=== PATIENT | male | born 1970 | race Caucasian/White ===

== ENCOUNTER 2016-04-30 00:52 | Inpatient (IN) | payer MEDICAID, MEDICARE, OTHER ==
[2016-04-30 01:23] LABS: Glucose,Whole Blood 190 mg/dL (75-99)
--- NOTE | 2016-04-30 02:13 | ED ---
Psych HPI - General Chief Complaint: Psychiatric Symptoms Stated Complaint: [facility] Time Seen by Provider: 04/30/16 01:09 Source: patient, RN notes reviewed Mode of arrival: ambulatory Limitations: no limitations - History of Present Illness Initial Comments: 45-year-old male presents emergency Department chief complaint depression suicidal thoughts. Patient states he has not taken his psychiatric medications in 6 months. Patient states that he does drink alcohol occasionally and uses marijuana. Patient states that he stopped taking his medications because he was gaining weight. Patient states that the apical was helping. Patient states she also has not been taking his diabetic medications are takes oral medications. Patient denies any physical complaints. Patient states that he has a plan to kill himself. Patient denies any homicidal thoughts. - Related Data Home Medications Medication Instructions Recorded Confirmed No Known Home Medications [No 04/30/16 04/30/16 Known Home Medications] Allergies Allergy/AdvReac Type Severity Reaction Status Date / Time No Known Allergies Allergy Verified 04/30/16 01:15 Review of Systems ROS Statement: Those systems with pertinent positive or pertinent negative responses have been documented in the HPI. ROS Other: All systems not noted in ROS Statement are negative. Past Medical History Past Medical History: Asthma, COPD, Diabetes Mellitus, Hypertension, Musculoskeletal Disorder Additional Past Medical History / Comment(s): vertigo, chronic back pain History of Any Multi-Drug Resistant Organisms: None Reported Past Surgical History: Hernia Repair, Orthopedic Surgery Additional Past Surgical History / Comment(s): left knee, left shoulder Past Anesthesia/Blood Transfusion Reactions: Previous Problems w/ Anesthesia Additional Past Anesthesia/Blood Transfusion Reaction / Comment(s): difficulty waking Past Psychological History: Anxiety, Bipolar, Depression Smoking Status: Current every day smoker Past Alcohol Use History: Daily, Heavy Past Drug Use History: Marijuana, Prescription Drug Abuse Additional Drug Use History / Comment(s): occasional for pain - Past Family History Mother Family Medical History: No Reported History Father Family Medical History: Hypertension, Respiratory Disorder General Exam Limitations: no limitations General appearance: alert, in no apparent distress Head exam: Present: atraumatic, normocephalic, normal inspection Neck exam: Present: normal inspection, full ROM. Absent: tenderness, meningismus, lymphadenopathy Respiratory exam: Present: normal lung sounds bilaterally. Absent: respiratory distress, wheezes, rales, rhonchi, stridor Cardiovascular Exam: Present: regular rate, normal rhythm, normal heart sounds. Absent: systolic murmur, diastolic murmur, rubs, gallop, clicks GI/Abdominal exam: Present: soft, normal bowel sounds. Absent: distended, tenderness, guarding, rebound, rigid Neurological exam: Present: alert, oriented X3, CN II-XII intact Psychiatric exam: Present: depressed Skin exam: Present: warm, dry, intact, normal color. Absent: rash Course Vital Signs 04/30/16 01:04 Temperature 97.6 F Pulse Rate 94 Respiratory 20 Rate Blood Pressure 154/84 O2 Sat by Pulse 96 Oximetry Medical Decision Making - Lab Data Lab Results 04/30/16 04/30/16 Range/Units 01:22 01:25 POC Glucose (mg/dL) 190 H (75-99) mg/dL POC Glu Millinery Salesperson ID Dania Galeano Urine Opiates Screen Not Detected (NotDetected) Ur Oxycodone Screen Not Detected (NotDetected) Urine Methadone Screen Not Detected (NotDetected) Ur Propoxyphene Screen Not Detected (NotDetected) Ur Barbiturates Screen Not Detected (NotDetected) U Tricyclic Antidepress Not Detected (NotDetected) Ur Phencyclidine Scrn Not Detected (NotDetected) Ur Amphetamines Screen Not Detected (NotDetected) U Methamphetamines Scrn Not Detected (NotDetected) U Benzodiazepines Scrn Detected H (NotDetected) Urine Cocaine Screen Not Detected (NotDetected) U Marijuana (THC) Screen Detected H (NotDetected) Disposition Clinical Impression: Suicidal ideation, Depression Disposition: ADMITTED IP TO THIS HOSP Condition: Stable
[2016-04-30] MEDS ORDERED: LORazepam 1 MG TAB PO STA (02:48)
[2016-04-30] MEDS ORDERED: ZIPRASIDONE 20 MG VIAL IM PRN (06:43)
[2016-04-30] MEDS ORDERED: MAGNESIUM HYDROXIDE 2,400 MG/10 ML CUP PO PRN (06:43)
[2016-04-30] MEDS ORDERED: LORazepam 1 MG TAB PO PRN (06:47)
[2016-04-30 08:43] VITALS: BMI 42.0
[2016-04-30] MEDS: NICOTINE 21MG/24HR PATCH TRANSDERM SCH (08:47)
[2016-04-30] MEDS ORDERED: NICOTINE 14MG/24HR PATCH TRANSDERM SCH (09:00)
[2016-04-30] MEDS ORDERED: INFLUENZA VACCINE (3YR+) 60 MCG/0.5 ML SYRINGE IM ONE (10:00)
[2016-04-30] MEDS: LORazepam 0.5 MG TAB PO PRN ×2 (10:05→18:28)
--- NOTE | 2016-04-30 10:15 | P.HP ---
Psychiatric H&P - . History & Physical: Allergies Allergy/AdvReac Type Severity Reaction Status Date / Time No Known Allergies Allergy Verified 04/30/16 08:43 Vital Signs Temp 97.9 F 04/30/16 04:15 Pulse 89 04/30/16 04:15 Resp 16 04/30/16 04:15 BP 167/95 04/30/16 04:15 Pulse Ox 96 04/30/16 01:04 Intake & Output 04/29/16 04/30/16 04/30/16 18:59 06:59 18:59 Weight 118 kg 118 kg Laboratory Last Values POC Glucose (mg/dL) 190 mg/dL (75-99) H 04/30/16 01:22 POC Glu In School Suspension Aide Dania Eugene 04/30/16 01:22 Urine Opiates Screen Not Detected (NotDetected) 04/30/16 01:25 Ur Oxycodone Screen Not Detected (NotDetected) 04/30/16 01:25 Urine Methadone Screen Not Detected (NotDetected) 04/30/16 01:25 Ur Propoxyphene Screen Not Detected (NotDetected) 04/30/16 01:25 Ur Barbiturates Screen Not Detected (NotDetected) 04/30/16 01:25 U Tricyclic Antidepress Not Detected (NotDetected) 04/30/16 01:25 Ur Phencyclidine Scrn Not Detected (NotDetected) 04/30/16 01:25 Ur Amphetamines Screen Not Detected (NotDetected) 04/30/16 01:25 U Methamphetamines Scrn Not Detected (NotDetected) 04/30/16 01:25 U Benzodiazepines Scrn Detected (NotDetected) H 04/30/16 01:25 Urine Cocaine Screen Not Detected (NotDetected) 04/30/16 01:25 U Marijuana (THC) Screen Detected (NotDetected) H 04/30/16 01:25 04/30/16 09:28 Psychiatric admission notes. Identification data and reason for hospitalization. Mr. Garcia is a 45-year-old white to gentleman who is being admitted to mental health unit following his evaluation in the emergency department where he came on his own reporting depression and suicidal thoughts. Patient has not been taking his psychiatric medications, as well as medication for his diabetes and hypertension for a while and recently was getting preoccupied with suicidal thoughts which was steadily worsening and hence came to the ER. History of present illness. Information obtainable from the patient is quite reliable and according to him he has had psychiatric problem almost all his life and since his discharge patient was supposed to be on follow-up with [facility], but since he made too much money they discharged him without referring to alternate treatment program. Patient did not want to pursue treatment as he did not like the side effects of his medications as well as financial reasons though he was making adequate Social Security benefits. For the past or few months he has been feeling depressed, having panic attacks and sleeplessness. Has constant thinking of ways of ending his life but has not made any plans of doing so. Reports having problems around people with the result he does not even go for ordinary shopping needs. Gets panic attacks spontaneously. Does not enjoy any activity that used to be enjoyable in the past. For the past weeks he has been feeling more depressed and despondent about living and asked the thoughts of how to end his life became more and more severe. Patient has been trying to talk to his friends and girlfriend regarding these thoughts and talking did not resolve his depressive trends and called a 800 number he had for crisis situation and was referred to come to the hospital. Past psychiatric history. Patient indicates that his first hospitalization was when he was 6 or 7 years old at [facility], a children psychiatric hospital. He does not remember what the hospitalization was for, but believes that whenever he is unruly and disturbed at home his parents put him there. He has had multiple hospitalizations and there as well as the [facility], another facility for children and adolescents. It looks like that since his dad's at the patient's age of 17 he did not have any hospitalization until couple of years ago when he tried to commit suicide with overdose over the infidelity of his . Patient had another hospitalization after that as well as he still remained depressed. Patient acknowledges that he was on Depakote which didn't help him well however the weight gain made him quite and since discontinuing he has lost over 50 pounds. Also indicates that other psychiatric medications made him feel weird and did not like continuing them. Patient acknowledges that by and large he does not trust doctors to make the right decision for him. There is no clear-cut evidence of manic or hypomanic episodes though some of his behavioral problems in childhood and adolescence could be interpreted as hypomanic in nature Substance abuse history. Patient was heavily into alcohol which he seems to have quit about 7 years ago, though he continues to use marijuana on a regular basis. No significant other substance abuse history. Patient is a heavy smoker. Personal history. Patient is the older of 2 siblings; has a sister 2 years younger to him. Patient was born and raised in [place] and the home environment was somewhat unpleasant due to father's heavy alcohol use and fights between parents. In spite of his frequent hospitalization seems to have graduated from high school, but has a reading difficulty. As he was getting into trouble all the time there when he was around 21 decided to move to [place] and was working until couple of years ago due to disability. States that he started working since about age 14 and full-time once his father when patient was 17 . Patient was for about 10 years, had no children. When he found that his was cheating on him (as his stepdaughter told him) he asked everybody to leave the house and took an overdose resulted in hospitalization. Currently on Social Security disability and is living with a roommate in an apartment. Patient has a girlfriend who is living with her mother. Patient's mother is in a halfway, and his sister is living with her boyfriend. Medical history. 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 Has history of hypertension and chronic low back pain. Somewhere along he was diagnosed as diabetic, but has not been compliant with any of his medications. Also has history of COPD reported. Has surgical history of hernia repair and orthopedic surgery left knee and left shoulder Family history. Both his parents had psychiatric hospitalization, father in [facility] once, mother at [facility] once. Patient does not know what they were admitted for. His mother has cerebral palsy. Patient's sister was also frequently admitted at [facility] as well as [facility]. She is diagnosed as bipolar but does not seem to be compliant with treatment. Patient does not know psychiatric history on either side of his parents. ALLERGIES. None known Current medications. Patient is not on any medications, and other than that he had Depakote and Seroquel in the past does not remember the names of other medications. His drug screen showed marijuana and benzodiazepines, obviously has been taking them from some source. Mental status examination. Patient is an obese built gentleman who appears to be of his stated age, dressed in his own clothes comes readily for the evaluation and has no psychomotor disturbance. Patient has adequate grooming trends and during the evaluation was fairly pleasant and cooperative and maintaining good eye contact. Responded to questions relevantly and coherently with appropriate affect. Speech was regular in rate, rhythm, tone and volume. His thought processes distraught show any abnormal traits. Patient acknowledged to her that he was feeling depressed though he appeared to be euthymic. Express his concerns about his panic episodes particularly difficulty when around people or going shopping. There was no indication that he was having any delusions or hallucinations. Patient is oriented to time place and person. His remote recent and immediate memory functions seem to be fairly intact. Has adequate General Information. Seems to have fair degree of insight and judgment though he has been noncompliant with treatment recommendations in the past. Intelligence. Average Strengths. Adequate income, and a place to live. Supportive girlfriend and other friends. Quite close to mother. Some motivation. Weakness. Long history of psychiatric problems. Noncompliant with treatment. Marijuana abuse. Formulation. Patient is a 45-year-old obese built white gentleman with has had long history of psychiatric problem but has been noncompliant with treatment follow-up has been getting quite depressed with suicidal preoccupation and as it intensified sought psychiatric treatment and was referred for inpatient admission. Diagnoses. [place] I. Rule out bipolar 2 disorder. Rule out Depressive disorder. Marijuana abuse. Tobacco use disorder. [place] II. Deferred [place] III. Obesity. Diabetes mellitus type 2. History of bronchial asthma. History of hypertension. Low back pain syndrome. [place] IV. Moderate [place] V. 25 Treatment plans. Patient will be on a diabetic diet and will have Tylenol, Maalox, and Mylanta on a when necessary basis. We will have medical evaluation and follow-up as needed and psychosocial history. Patient will be encouraged to participate in all milieu based treatment activities and will see him on a daily basis in supportive and reality oriented discussion and appropriate adjustment of medication as needed. Patient did not want to be on Depakote but willing to take Seroquel and Trileptal. Also requesting something to deal with his anxiety. His placed on Seroquel XR 150 mg at 7 PM, Trileptal 300 mg twice a day , and Ativan 0.5 mg 4 times a day when necessary and at at bedtime. Once stabilized discharge plans will be made and will refer for outpatient follow-up. Prognosis. Fair with compliance of treatment.
[2016-04-30 10:32] LABS: Appearance,Urine Clear (Clear); Bilirubin,Urine Negative (Negative); Glucose,Urine (UA) 1+ (Negative); Ketones,Urine Trace (Negative); Leukocyte Esterase,Urine Negative (Negative); Nitrite,Urine Negative (Negative); Protein,Urine Trace (Negative); Specific Gravity,Urine 1.023 (1.001-1.035); UA Billing (MACRO vs. MICRO) CHEM; Urobilinogen,Urine <2.0 mg/dL (<2.0)
[2016-04-30 12:30] LABS: Glucose,Whole Blood 82 mg/dL (75-99)
[2016-04-30 13:39] LABS: Hemoglobin A1C 5.9 % (4.2-6.1)
[2016-04-30] MEDS: ALBUTEROL INHALER 60 PUFF/8 GM INHALER INHALATION PRN ×2 (14:04→19:00)
[2016-04-30] MEDS: ACETAMINOPHEN TAB 325 MG TAB PO PRN (14:08)
[2016-04-30] MEDS: metFORMIN 500 MG TAB PO SCH (15:32)
[2016-04-30] MEDS: HYDROcodone/APAP 5-325MG 1 EACH TAB PO PRN (15:32)
[2016-04-30] MEDS: LISINOPRIL-HCTZ 20-25 MG 1 EACH TAB PO SCH (15:32)
[2016-04-30 17:37] LABS: Glucose,Whole Blood 102 mg/dL (75-99)
[2016-04-30] MEDS: SYMBICORT 160-4.5 MCG INHALER INHALATION SCH (19:00)
[2016-04-30 20:11] LABS: Glucose,Whole Blood 187 mg/dL (75-99)
[2016-04-30] MEDS: OXcarbazepine 300 MG TAB PO SCH (20:20)
[2016-04-30] MEDS: LORazepam 0.5 MG TAB PO SCH (20:20)
[2016-05-01 06:48] LABS: Glucose,Whole Blood 121 mg/dL (75-99)
[2016-05-01] MEDS: metFORMIN 500 MG TAB PO SCH (07:55)
[2016-05-01] MEDS: OXcarbazepine 300 MG TAB PO SCH ×2 (08:59→21:20)
[2016-05-01] MEDS: NICOTINE 21MG/24HR PATCH TRANSDERM SCH (08:59)
[2016-05-01] MEDS: LISINOPRIL-HCTZ 20-25 MG 1 EACH TAB PO SCH (08:59)
[2016-05-01] MEDS: HYDROcodone/APAP 5-325MG 1 EACH TAB PO PRN ×2 (09:01→21:19)
[2016-05-01] MEDS: LORazepam 0.5 MG TAB PO PRN ×2 (09:01→18:48)
[2016-05-01 09:38] LABS: Basophils % (A) 1 %; CH 31.9; CHCM 33.6; Eosinophils # (A) 0.2 k/uL (0-0.7); Eosinophils % (A) 3 %; HCT 50.9 % (39.0-53.0); HDW 2.42; HGB 16.8 gm/dL (13.0-17.5); Luc # (Auto) 0.14; Luc % (Auto) 2; Lymphocytes # (A) 2.6 k/uL (1.0-4.8); Lymphocytes % (A) 32 %; MCH 31.5 pg (25.0-35.0); MCV 95.4 fL (80.0-100.0); Mean Platelet Volume 6.8; Monocytes # (A) 0.2 k/uL (0-1.0); Monocytes % (A) 3 %; Neutrophils # (A) 4.9 k/uL (1.3-7.7); Neutrophils % (A) 60 %; RBC 5.33 m/uL (4.30-5.90); RDW 12.8 % (11.5-15.5); WBC 8.1 k/uL (3.8-10.6); WBC (Perox) 8.31
[2016-05-01 09:56] LABS: ALT 64 U/L (21-72); AST 40 U/L (17-59); Alkaline Phosphatase 92 U/L (38-126); Anion Gap 12 mmol/L; Blood Urea Nitrogen 12 mg/dL (9-20); Calcium 9.6 mg/dL (8.4-10.2); Carbon Dioxide 25 mmol/L (22-30); Chloride 103 mmol/L (98-107); Glucose 261 mg/dL (74-99); Non-African American GFR(MDRD) >60 (>60 ml/min/1.73 sqM); Potassium 4.3 mmol/L (3.5-5.1); Sodium 140 mmol/L (137-145); Total Bilirubin 0.6 mg/dL (0.2-1.3); Total Protein 6.9 g/dL (6.3-8.2)
[2016-05-01 12:12] LABS: Glucose,Whole Blood 97 mg/dL (75-99)
[2016-05-01] MEDS: ALBUTEROL INHALER 60 PUFF/8 GM INHALER INHALATION PRN ×2 (12:33→19:14)
[2016-05-01] MEDS: SYMBICORT 160-4.5 MCG INHALER INHALATION SCH ×2 (12:33→19:15)
--- NOTE | 2016-05-01 13:09 | HP ---
DATE OF ADMISSION: No [facility] 8. CHIEF COMPLAINT: Major depression and acute depression. HISTORY OF PRESENT ILLNESS: This is a 45-year-old male who presented to the hospital with severe depression and binge drinking. The patient states that he has been away from drinking alcohol for a long time. A month ago he was overwhelmed and things got worse to the point where he had two fifths of whiskey three days ago. Patient states that he thought about killing himself, however, had no plan at that time. Patient has a history of anxiety, depression, and was diagnosed with bipolar disorder. at a different facility in the past. He quit taking his medication due to lack of insurance about 6 month ago but continues to smoke 1 pack per day and smokes marijuana every day. Denies any history of cocaine or IV drug abuse. Patient was diagnosed with hypertension, hyperlipidemia, diabetes and said that he quit taking all those medication due to lack of insurance. REVIEW OF SYSTEMS: All 14 systems reviewed and negative except as above. PAST MEDICAL AND SURGICAL HISTORY: 1. Chronic back pain. 2. Tobacco dependency. 3. Diabetes type 2. 4. Hypertension. 5. Obesity. 6. COPD. 7. Hyperlipidemia. 8. Depression. 9. Anxiety. 10. Bipolar disorder. 11. 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 SOCIAL HISTORY: Positive for marijuana, tobacco and alcoholism. No IV drug abuse. The patient is with a and 3 children, 2, 11 and 12. HOME MEDICATIONS: Patient has been not taking his medications for the past six months but used to be on: 1. Zoloft ( ) twice daily. 2. Lortab 1 tablet 3 times a day as needed. 3. Lisinopril/hydrochlorothiazide daily. 4. Metformin twice daily. 5. Albuterol inhaler as needed. 6. Cymbicort twice daily. FAMILY HISTORY: Significant for diabetes in his father. Mother is still alive and healthy. PAST SURGICAL HISTORY: 1. Positive for left shoulder surgery 2. ( ) surgery. 3. Umbilical hernia repair. PHYSICAL EXAMINATION: Vital signs reviewed and stable. HEENT: Atraumatic, normocephalic. NECK: Supple, no masses, no thyromegaly. LUNGS: Clear to auscultation bilaterally. CARDIAC: Normal S1, S2. ABDOMEN: Soft, nontender. Positive bowel sounds in all four quadrants. PSYCH: Alert and oriented x3. Relaxed mood and affect. NEURO: Cranial nerves II through XII intact. Normal deep tendon reflexes and sensation. Negative straight leg raising bilaterally. SKIN: No new rash. IMAGING AND LABS: His UA was positive for ( ) blood glucose. Urine drug screen was positive for benzo and marijuana. ASSESSMENT AND PLAN: 1. Acute depression under management. 2. Alcoholism. No signs or symptoms of withdrawal. Patient denies history of DTs in the past. Will continue monitoring closely. Consider ( ) patient to have withdrawal symptoms. 3. History of herniated disc and chronic back pain. We will start patient on [place] 1 tablet twice a day as needed. Avoid Soma at this point. 4. Diabetes. The patient was prescribed metformin but quit taking it 6 months ago. I would like to start with metformin 500 mg daily with breakfast and avoid hypoglycemia, will monitor closely. 5. Hypertension. We will continue monitoring during this hospital stay. Start patient on lisinopril/hydrochlorothiazide and monitor close. Blood pressure goal 140/90. 6. Chronic obstructive pulmonary disease. We will continue albuterol and start the patient on Cymbicort twice daily. 7. Hyperlipidemia to be addressed by his primary care physician. 8. Obesity. Counseled regarding weight loss. 9. Alcoholism along with marijuana abuse. Will credit counselor patient during this hospital stay regarding abstinence. . Will follow up the patient on as-needed basis.
[2016-05-01] MEDS: MAG HYDROX/AL HYDROX/SIMETH 30 ML CUP PO PRN (13:39)
--- NOTE | 2016-05-01 15:09 | P.PN ---
Subjective Psychiatric progress notes. Patient reports that he has been feeling somewhat better as well as his anxiety is concerned however his depression has not changed much. While talking he indicated that the last time he was here he was discharged prematurely and had to come back as the thoughts of wanting to end his life remained strong. He is requesting not to discharge him until his depression somewhat improves. Patient has been participating in all treatment activities and has no adverse effect his medication. Patient is concerned particularly about weight gain that could happen with any of his medication and indicated that Trileptal is not generally known to cause weight gain. Seems to have slept fairly alright and is participating in milieu based treatment activities. Mental status. Somewhat heavy built gentleman dressed in his own clothes and with adequate grooming trends. Patient has a ny and unshaven face. No evidence of any psychomotor disturbance. Patient is alert cooperative and with appropriate affect. Speech and thought process did not show any abnormal traits. Reports feeling depressed, anxious and preoccupied with many depressing thoughts. No delusions or hallucinations. Patient has adequate degree of insight and judgment. Continue current medications and treatment plans. Objective - Vital Signs Vital signs: Vital Signs Temp 97.5 F L 05/01/16 06:43 Pulse 113 H 05/01/16 09:04 Resp 20 05/01/16 09:04 BP 131/74 05/01/16 09:04 Pulse Ox 96 04/30/16 01:04 Intake & Output 04/30/16 05/01/16 05/01/16 18:59 06:59 18:59 Weight 118 kg 117.8 kg - Labs CBC & Chem 7: 05/01/16 09:24 05/01/16 09:24 Labs: Abnormal Lab Results - Last 24 Hours (Table) 04/30/16 04/30/16 04/30/16 Range/Units 10:00 17:35 20:10 Glucose (74-99) mg/dL POC Glucose (mg/dL) 102 H 187 H (75-99) mg/dL U Benzodiazepines Scrn Positive H (Negative) ng/mL U Cannabinoids Screen Positive H (Negative) ng/mL 05/01/16 05/01/16 Range/Units 06:37 09:24 Glucose 261 H (74-99) mg/dL POC Glucose (mg/dL) 121 H (75-99) mg/dL U Benzodiazepines Scrn (Negative) ng/mL U Cannabinoids Screen (Negative) ng/mL
[2016-05-01 17:22] LABS: Glucose,Whole Blood 98 mg/dL (75-99)
[2016-05-01 20:29] LABS: Glucose,Whole Blood 198 mg/dL (75-99)
[2016-05-01] MEDS: LORazepam 0.5 MG TAB PO SCH (21:19)
[2016-05-02 06:31] LABS: Glucose,Whole Blood 125 mg/dL (75-99)
[2016-05-02] MEDS: metFORMIN 500 MG TAB PO SCH (08:56)
[2016-05-02] MEDS: OXcarbazepine 300 MG TAB PO SCH ×2 (08:56→21:01)
[2016-05-02] MEDS: NICOTINE 21MG/24HR PATCH TRANSDERM SCH (08:56)
[2016-05-02] MEDS: LISINOPRIL-HCTZ 20-25 MG 1 EACH TAB PO SCH (08:56)
[2016-05-02] MEDS: HYDROcodone/APAP 5-325MG 1 EACH TAB PO PRN ×2 (08:58→21:03)
[2016-05-02] MEDS: LORazepam 0.5 MG TAB PO PRN (08:58)
[2016-05-02] MEDS: SYMBICORT 160-4.5 MCG INHALER INHALATION SCH ×2 (09:02→21:54)
[2016-05-02] MEDS: ALBUTEROL INHALER 60 PUFF/8 GM INHALER INHALATION PRN ×3 (09:02→21:54)
[2016-05-02 12:43] LABS: Glucose,Whole Blood 98 mg/dL (75-99)
[2016-05-02] MEDS: MAG HYDROX/AL HYDROX/SIMETH 30 ML CUP PO PRN ×2 (13:46→21:25)
--- NOTE | 2016-05-02 15:14 | P.PN ---
Subjective Psychiatric progress notes. Mr. Garcia who is a 45-year-old somewhat obese built white gentleman indicates that he still feeling depressed and on and off think of suicide as a way of coping with life, all the same adding that he does not know what makes him feel this way. On the other hand he indicates that whenever he is angry or upset with people the first thing he thinks about is how to end his life. Further stated that superficially he presents as if nothing bothers him and he is a happy person deep inside is very depressed and feeling as if there is no enjoyment for him though he wants to see other people happy. When he woke up this morning for no reason he wanted to hit something and was feeling angry and agitated though this has settled down by the time I had seen him. Has been participating in all treatment activities. Mental status. Obese built gentleman dressed in his own clothes, and without any psychomotor disturbance. Comes readily for the evaluation and appeared to be pleasant and cooperative though he made it to a point to let me know that he was feeling quite depressed. Anxiety has been responding to the medications. Fair grooming. Speech and thought processes did not show any significant abnormal traits. Reports feeling depressed and on and off having suicidal preoccupation without any specific plans. Appropriate affect. No delusions or hallucinations. Has moderate degree of insight and judgment. Though patient may have bipolar disorder in view of his depression and anxiety decided to start small doses of SSRI, Celexa 10 mg daily. Objective - Vital Signs Vital signs: Vital Signs Temp 97.6 F 05/02/16 07:10 Pulse 110 H 05/02/16 13:37 Resp 16 05/02/16 13:37 BP 120/86 05/02/16 13:37 Pulse Ox 96 04/30/16 01:04 Intake & Output 05/01/16 05/02/16 05/02/16 18:59 06:59 18:59 Weight 117.8 kg - Labs CBC & Chem 7: 05/01/16 09:24 05/01/16 09:24 Labs: Abnormal Lab Results - Last 24 Hours (Table) 05/01/16 05/02/16 Range/Units 20:27 06:23 POC Glucose (mg/dL) 198 H 125 H (75-99) mg/dL
[2016-05-02 17:30] LABS: Glucose,Whole Blood 114 mg/dL (75-99)
[2016-05-02 20:00] LABS: Glucose,Whole Blood 151 mg/dL (75-99)
[2016-05-02] MEDS: LORazepam 0.5 MG TAB PO SCH (21:01)
[2016-05-03 06:37] LABS: Glucose,Whole Blood 115 mg/dL (75-99)
[2016-05-03] MEDS: metFORMIN 500 MG TAB PO SCH (08:01)
[2016-05-03] MEDS: HYDROcodone/APAP 5-325MG 1 EACH TAB PO PRN ×2 (08:01→20:39)
[2016-05-03] MEDS: LISINOPRIL-HCTZ 20-25 MG 1 EACH TAB PO SCH (08:02)
[2016-05-03] MEDS: NICOTINE 21MG/24HR PATCH TRANSDERM SCH (08:02)
[2016-05-03] MEDS: LORazepam 0.5 MG TAB PO PRN (08:02)
[2016-05-03] MEDS: OXcarbazepine 300 MG TAB PO SCH ×2 (08:02→20:39)
[2016-05-03] MEDS: CITALOPRAM HYDROBROMIDE 10 MG TAB PO SCH (08:02)
[2016-05-03] MEDS: ALBUTEROL INHALER 60 PUFF/8 GM INHALER INHALATION PRN ×4 (08:39→20:43)
[2016-05-03] MEDS: SYMBICORT 160-4.5 MCG INHALER INHALATION SCH ×2 (08:39→20:43)
--- NOTE | 2016-05-03 11:10 | P.PN ---
Progress Note - Text Interval history: The patient is found in the [facility] she follows me to an interview room. He was admitted over the weekend by Dr. Davison that documentation was reviewed. The patient presented with acute suicidal ideation in the context of alcohol dependence. He had stopped his medications due to concerns related to weight gain. He had been on Depakote with Seroquel. He states he was released from [facility] and had no follow-up since. We discussed his alcohol use he states that he does not wish to participate in inpatient chemical dependency treatment at this time. We discussed the importance of utilizing a program to stop alcohol use. He reports a continued depressed mood with suicidal ideation. He has been started on Celexa 10 mg daily for depressive and anxiety symptoms. Mental status exam: The patient is an obese male he has a disheveled appearance he is dressed in his own clothing. Eye contact is appropriate he has poor dentition and is missing teeth. Speech is fluent spontaneous he is verbose but directable. Thought process is linear at times he is circumstantial at other times. He demonstrates no tangential thinking loose associations or flight of ideas. He continues to endorse a hopeless mood with suicidal ideation no homicidal ideation. No report or evidence of psychosis. Insight and judgment limited. There is no physical evidence of tremor. Plan: The patient's is being treated for bipolar disorder in the context of alcohol dependence. He will continue on the Trileptal and Seroquel XR as well as the Celexa. We will consider titrating the Celexa and possibly the Trileptal. Vital signs reviewed labs reviewed. We will monitor him for safety he is encouraged to participate in the milieu. He was encouraged to consider thinking about chemical dependency residential treatment.
[2016-05-03 11:52] LABS: Glucose,Whole Blood 107 mg/dL (75-99)
[2016-05-03] MEDS: MAG HYDROX/AL HYDROX/SIMETH 30 ML CUP PO PRN (12:18)
[2016-05-03] MEDS: ACETAMINOPHEN TAB 325 MG TAB PO PRN (13:40)
[2016-05-03 18:32] LABS: Glucose,Whole Blood 103 mg/dL (75-99)
[2016-05-03] MEDS: LORazepam 0.5 MG TAB PO SCH (20:39)
[2016-05-03 20:58] LABS: Glucose,Whole Blood 176 mg/dL (75-99)
[2016-05-04] MEDS: MAG HYDROX/AL HYDROX/SIMETH 30 ML CUP PO PRN (01:08)
[2016-05-04 06:49] LABS: Glucose,Whole Blood 116 mg/dL (75-99)
[2016-05-04] MEDS: metFORMIN 500 MG TAB PO SCH (08:06)
[2016-05-04] MEDS: CITALOPRAM HYDROBROMIDE 10 MG TAB PO SCH (08:06)
[2016-05-04] MEDS: LISINOPRIL-HCTZ 20-25 MG 1 EACH TAB PO SCH (08:06)
[2016-05-04] MEDS: OXcarbazepine 300 MG TAB PO SCH ×2 (08:06→20:41)
[2016-05-04] MEDS: NICOTINE 21MG/24HR PATCH TRANSDERM SCH (08:07)
[2016-05-04] MEDS: LORazepam 0.5 MG TAB PO PRN ×2 (08:08→13:18)
[2016-05-04] MEDS: HYDROcodone/APAP 5-325MG 1 EACH TAB PO PRN ×2 (09:07→20:42)
--- NOTE | 2016-05-04 09:52 | P.PN ---
Progress Note - Text Interval history: The patient is found in group he follows me to an interview room. He reports feeling irritable yesterday. He finds himself easily triggered by simple things such as his food tray not being exactly as ordered. He is attending groups he was able to sleep last night reporting approximately 8 hours of sleep. Appetite stable. He continues to feel depressed and hopeless. He continues to report suicidal ideation. We discussed his current medications and that we will be titrating the Celexa further. Mental status exam: The patient is an obese disheveled male. He demonstrates chronic poor dentition with missing teeth. Eye contact is appropriate speech is fluent spontaneous nonpressured. He endorses a depressed and hopeless mood with ongoing suicidal ideation. He reports feeling easily agitated and irritable at times. He is endorsing no hallucinations there is no evidence of psychosis. He does not present hypomanic or manic. Insight and judgment limited. There is no evidence of physical tremor. Plan: The patient will continue on his current medications we will titrate the Celexa 20 mg tomorrow, we will consider titrating his mood stabilizing medication further if needed. Vital signs reviewed. He requires continued inpatient psychiatric hospitalization for safety reasons. We will monitor him for safety and encourage his continued participation in the milieu.
[2016-05-04] MEDS: SYMBICORT 160-4.5 MCG INHALER INHALATION SCH ×3 (11:05→19:02)
[2016-05-04] MEDS: ALBUTEROL INHALER 60 PUFF/8 GM INHALER INHALATION PRN ×2 (11:09→19:02)
[2016-05-04 12:46] LABS: Glucose,Whole Blood 147 mg/dL (75-99)
[2016-05-04] MEDS: PANTOPRAZOLE 40 MG TABLET PO SCH (12:47)
[2016-05-04 17:14] LABS: Glucose,Whole Blood 96 mg/dL (75-99)
[2016-05-04 20:24] LABS: Glucose,Whole Blood 179 mg/dL (75-99)
[2016-05-04] MEDS: LORazepam 0.5 MG TAB PO SCH (20:42)
[2016-05-05 06:48] LABS: Glucose,Whole Blood 101 mg/dL (75-99)
[2016-05-05] MEDS: NICOTINE 21MG/24HR PATCH TRANSDERM SCH (08:10)
[2016-05-05] MEDS: OXcarbazepine 300 MG TAB PO SCH ×2 (08:11→20:03)
[2016-05-05] MEDS: LISINOPRIL-HCTZ 20-25 MG 1 EACH TAB PO SCH (08:11)
[2016-05-05] MEDS: metFORMIN 500 MG TAB PO SCH (08:11)
[2016-05-05] MEDS: PANTOPRAZOLE 40 MG TABLET PO SCH (08:11)
[2016-05-05] MEDS: CITALOPRAM HYDROBROMIDE 20 MG TAB PO SCH (08:11)
[2016-05-05] MEDS: HYDROcodone/APAP 5-325MG 1 EACH TAB PO PRN ×2 (08:12→20:03)
--- NOTE | 2016-05-05 08:52 | P.PN ---
Progress Note - Text Interval history: The patient is found in the dining room he follows me to an interview room. He states that he was frustrated yesterday during one of the groups and frustrated by phone calls from his mother and girlfriend. We discussed these events in some detail and they seem to be minor. He reports attending most groups. He was able to sleep last night appetite is intact. We discussed his medications again. We discussed discharge planning and where he would prefer to follow-up for outpatient mental healthcare as he is not able to go to [facility]. Mental status exam: The patient is an obese male he has a disheveled appearance hygiene is adequate chronic poor dentition. Mood is slowly improving. He notes times where he becomes frustrated he demonstrates no violent or acting out behavior. He does not appear hypomanic or manic. Speech is fluent spontaneous nonpressured. Thought process is linear there is no tangential thinking and flight of ideas or loose associations. There is no evidence of psychosis. Insight and judgment improving. Affect demonstrates more range appropriately. Plan: The patient will continue on his current medications we will draw a Trileptal level maintain Seroquel XR and Celexa as written. Social work will be asked to arrange a support meeting. If the patient demonstrates continued improvement/stability we will consider discharge as early as tomorrow. We will continue to monitor him for safety. Vital signs reviewed which are within normal limits. There is no evidence of tremulousness activity.
[2016-05-05] MEDS: SYMBICORT 160-4.5 MCG INHALER INHALATION SCH ×2 (09:30→21:27)
[2016-05-05] MEDS: ALBUTEROL INHALER 60 PUFF/8 GM INHALER INHALATION PRN ×3 (09:30→21:26)
[2016-05-05] MEDS: LORazepam 0.5 MG TAB PO PRN (12:35)
[2016-05-05 12:46] LABS: Glucose,Whole Blood 99 mg/dL (75-99)
[2016-05-05 17:04] LABS: Glucose,Whole Blood 120 mg/dL (75-99)
[2016-05-05 20:02] LABS: Glucose,Whole Blood 191 mg/dL (75-99)
[2016-05-05] MEDS: LORazepam 0.5 MG TAB PO SCH (20:03)
[2016-05-05] MEDS ORDERED: LORazepam 2 MG/ML SYRINGE IM STA (21:25)
[2016-05-05] MEDS ORDERED: ZIPRASIDONE 20 MG VIAL IM STA (21:26)
[2016-05-05] MEDS ORDERED: LORazepam 2 MG/ML SYRINGE ONE (21:27)
[2016-05-05] MEDS ORDERED: ZIPRASIDONE 20 MG VIAL IM ONE (21:28)
[2016-05-05] MEDS ORDERED: WATER FOR INJECTION, STERILE 10 ML IV ONE (21:28)
[2016-05-06 06:32] LABS: Glucose,Whole Blood 127 mg/dL (75-99)
[2016-05-06] MEDS: NICOTINE 21MG/24HR PATCH TRANSDERM SCH (08:03)
[2016-05-06] MEDS: PANTOPRAZOLE 40 MG TABLET PO SCH (08:04)
[2016-05-06] MEDS: CITALOPRAM HYDROBROMIDE 20 MG TAB PO SCH (08:04)
[2016-05-06] MEDS: LISINOPRIL-HCTZ 20-25 MG 1 EACH TAB PO SCH (08:04)
[2016-05-06] MEDS: metFORMIN 500 MG TAB PO SCH (08:04)
[2016-05-06] MEDS: OXcarbazepine 300 MG TAB PO SCH ×2 (08:04→20:13)
[2016-05-06] MEDS: HYDROcodone/APAP 5-325MG 1 EACH TAB PO PRN ×2 (09:09→20:12)
[2016-05-06] MEDS: ALBUTEROL INHALER 60 PUFF/8 GM INHALER INHALATION PRN ×3 (09:29→19:36)
[2016-05-06] MEDS: SYMBICORT 160-4.5 MCG INHALER INHALATION SCH ×2 (09:30→19:36)
--- NOTE | 2016-05-06 09:42 | P.PN ---
Progress Note - Text Interval history: The patient is found in the hallway he follows me to an interview room. He states yesterday evening he became acutely upset and required 2 injections to calm his behavior/mood. These thoughts triggered more suicidal ideation and he reports feeling "uneasy" at this time. He feels that he still made progress while here but does not feel safe to be discharged. He reports some difficulty sleeping last evening. Mental status exam: The patient is an overweight disheveled male. He chronically has poor dentition. Eye contact is appropriate speech is fluent spontaneous nonpressured. He describes an uneasy mood with some hopeless thinking and suicidal thoughts reoccurring. He is reporting no homicidal ideation he is reporting no symptoms of psychosis. He does not appear hypomanic or manic. Thought process is relatively linear he demonstrates no tangential thinking flight of ideas or loose associations. Insight and judgment gradually improving. No verbal or physical aggressiveness demonstrated. Plan: The patient will continue on his current psychotropic medications. We will draw a Trileptal level. We will defer the discharge until Monday for safety reasons. We will pursue discharge Monday if he appears clinically stable. Dr. Cummings will provide coverage for the patient over the weekend.
[2016-05-06 12:35] LABS: Glucose,Whole Blood 140 mg/dL (75-99)
[2016-05-06] MEDS: LORazepam 0.5 MG TAB PO PRN ×2 (14:52→23:15)
[2016-05-06 17:52] LABS: Glucose,Whole Blood 137 mg/dL (75-99)
[2016-05-06 20:07] LABS: Glucose,Whole Blood 190 mg/dL (75-99)
[2016-05-06] MEDS: LORazepam 0.5 MG TAB PO SCH (20:13)
[2016-05-07 06:34] LABS: Glucose,Whole Blood 111 mg/dL (75-99)
[2016-05-07] MEDS: ALBUTEROL INHALER 60 PUFF/8 GM INHALER INHALATION PRN ×4 (08:39→21:40)
[2016-05-07] MEDS: SYMBICORT 160-4.5 MCG INHALER INHALATION SCH ×2 (08:39→21:40)
[2016-05-07] MEDS: LISINOPRIL-HCTZ 20-25 MG 1 EACH TAB PO SCH (08:40)
[2016-05-07] MEDS: NICOTINE 21MG/24HR PATCH TRANSDERM SCH (08:40)
[2016-05-07] MEDS: metFORMIN 500 MG TAB PO SCH (08:41)
[2016-05-07] MEDS: OXcarbazepine 300 MG TAB PO SCH ×2 (08:41→20:21)
[2016-05-07] MEDS: PANTOPRAZOLE 40 MG TABLET PO SCH (08:41)
[2016-05-07] MEDS: CITALOPRAM HYDROBROMIDE 20 MG TAB PO SCH (08:41)
[2016-05-07] MEDS: LORazepam 0.5 MG TAB PO PRN (08:44)
[2016-05-07] MEDS: HYDROcodone/APAP 5-325MG 1 EACH TAB PO PRN ×2 (08:44→20:23)
[2016-05-07 12:38] LABS: Glucose,Whole Blood 117 mg/dL (75-99)
--- NOTE | 2016-05-07 17:37 | P.PN ---
Progress Note - Text Interval history: Patient seen in cross coverage today for Dr. Bland. Reports that he is still feeling depressed and has thoughts that like why is he here. He does not seem to voice any adverse psychotropic medication side effects. He states that he was admitted with depression and thoughts of suicide. The depression a been going on for more than a month. Thoughts of suicide started about 6 months ago. He says he had intense thoughts of suicide and called the suicide hotline and was subsequently admitted to the mental health unit. Mental status exam: He is alert and cooperative with the interview. Speech is fluent, not rapid or pressured. Thought processes are organized. His mood is depressed. In terms of thoughts of suicide he reports that he has thoughts like why is he here. He does not voice any thoughts of harm to others. He does not show any active evidence of psychosis or agitation. Plan: We'll titrate Seroquel XR further to 200 mg at 7 PM to help augment regarding depression. He verbalizes that he has been up to a total of 300 mg of Seroquel in the past. Maintain Celexa and Trileptal as current. We'll continue to cover for Dr. Bland through the weekend.
[2016-05-07] MEDS ORDERED: QUEtiapine XR 200 MG TAB.ER.24H PO SCH (19:00)
[2016-05-07 20:04] LABS: Glucose,Whole Blood 171 mg/dL (75-99)
[2016-05-07] MEDS: LORazepam 0.5 MG TAB PO SCH (20:21)
[2016-05-08 07:04] VITALS: RESP 18; TEMP 97.6
[2016-05-08 07:06] LABS: Glucose,Whole Blood 112 mg/dL (75-99)
[2016-05-08] MEDS: LISINOPRIL-HCTZ 20-25 MG 1 EACH TAB PO SCH (09:24)
[2016-05-08] MEDS: NICOTINE 21MG/24HR PATCH TRANSDERM SCH (09:24)
[2016-05-08] MEDS: CITALOPRAM HYDROBROMIDE 20 MG TAB PO SCH (09:25)
[2016-05-08] MEDS: HYDROcodone/APAP 5-325MG 1 EACH TAB PO PRN ×2 (09:25→20:17)
[2016-05-08] MEDS: metFORMIN 500 MG TAB PO SCH (09:25)
[2016-05-08] MEDS: OXcarbazepine 300 MG TAB PO SCH ×2 (09:25→20:17)
[2016-05-08] MEDS: PANTOPRAZOLE 40 MG TABLET PO SCH (09:25)
[2016-05-08] MEDS: LORazepam 0.5 MG TAB PO PRN ×2 (09:26→17:04)
[2016-05-08] MEDS: ALBUTEROL INHALER 60 PUFF/8 GM INHALER INHALATION PRN ×4 (09:28→21:13)
[2016-05-08] MEDS: SYMBICORT 160-4.5 MCG INHALER INHALATION SCH ×2 (09:29→21:14)
[2016-05-08 11:59] LABS: Glucose,Whole Blood 103 mg/dL (75-99)
[2016-05-08 17:04] LABS: Glucose,Whole Blood 169 mg/dL (75-99)
[2016-05-08] MEDS ORDERED: QUEtiapine XR 200 MG TAB.ER.24H PO SCH (19:00)
--- NOTE | 2016-05-08 19:08 | P.PN ---
Progress Note - Text Interval history: Patient seen in cross coverage today for Dr. Bland. He makes reference to plans for discharge tomorrow but seems to relay that he does not feel ready for discharge. He did sleep last night but states his sleep is broken. He does not seem to voice any adverse psychotropic medication side effects. He seems to relay that his mood is up and down. He seems to describe irritability. Mental status exam: He is alert and cooperative with the interview. His affect overall is restricted. His mood he seems to describe is fluctuating and he appears depressed. He admits to some ongoing thoughts of suicide but reports that he feels safe here in the hospital. He denies any active thoughts of harm to others but relays that if someone came and bothered him he would probably go off. We talked about him going to staff if he is struggling. He does not show any active evidence of psychosis. Plan: We'll maintain current psychotropic medications. Seroquel XR has been titrated. Continue to monitor for any medication side effects. Dr. Bland to resume care this patient starting tomorrow. Continue to monitor regarding any suicidal ideations, monitor for any agitated behavior.
[2016-05-08 20:02] LABS: Glucose,Whole Blood 98 mg/dL (75-99)
[2016-05-08] MEDS: LORazepam 0.5 MG TAB PO SCH (20:16)
[2016-05-09] MEDS: LORazepam 0.5 MG TAB PO PRN ×2 (03:56→11:07)
[2016-05-09] MEDS: ACETAMINOPHEN TAB 325 MG TAB PO PRN (03:56)
[2016-05-09 04:02] VITALS: BP 152/84; PULSE 100
[2016-05-09 06:04] LABS: Glucose,Whole Blood 103 mg/dL (75-99)
[2016-05-09] MEDS: LISINOPRIL-HCTZ 20-25 MG 1 EACH TAB PO SCH (08:14)
[2016-05-09] MEDS: OXcarbazepine 300 MG TAB PO SCH (08:14)
[2016-05-09] MEDS: CITALOPRAM HYDROBROMIDE 20 MG TAB PO SCH (08:14)
[2016-05-09] MEDS: metFORMIN 500 MG TAB PO SCH (08:14)
[2016-05-09] MEDS: PANTOPRAZOLE 40 MG TABLET PO SCH (08:14)
[2016-05-09] MEDS: NICOTINE 21MG/24HR PATCH TRANSDERM SCH (08:14)
[2016-05-09] MEDS: HYDROcodone/APAP 5-325MG 1 EACH TAB PO PRN (08:15)
[2016-05-09] MEDS ORDERED: hydrOXYzine PAMOATE 25 MG CAP PO PRN (09:03)
--- NOTE | 2016-05-09 09:18 | P.DS ---
Providers Date of admission: 04/30/16 03:39 Expected date of discharge: 05/09/16 Attending physician: Keny Bland Consults: 04/30/16 06:43 Consult Physician Routine Consulting Provider: Carmela Oliver Consult Reason/Comments: medoical management Do you want consulting provider notified?: Yes, Notify in am Primary care physician: Stated None - Discharge Diagnosis(es) (1) Depression Current Visit: Yes Status: Acute Priority: High (2) Cannabis use disorder, mild, abuse Current Visit: Yes Status: Acute Priority: Medium (3) Alcohol use disorder Current Visit: Yes Status: Acute Priority: Medium Hospital Course: Brief summary admission note: The patient is a 45-year-old male who is was admitted to the mental health unit to the emergency room reporting worsening symptoms of depression and suicidal thoughts. The patient was admitted to the mental health unit by Dr. Davison. He reported he had not been taking his psychiatric medicine and not taking his medication for diabetes and hypertension. He reports that he has had no outpatient psychiatric care once he was discharged from [facility]. He had been resistant to pursuing treatment at another clinic. He reported feeling depressed over the last several months having panic attacks and difficulty sleeping. For full details please refer to Dr. Low's psychiatric evaluation dated 04/30/2016. Summary of hospital course: The patient was initially seen by Dr. Davison and then I assumed the patient's care. Documentation was reviewed the patient was interviewed in seen daily. We reviewed symptoms and medication options. He had already been placed on Trileptal Seroquel and Celexa was initiated. We had titrated the Celexa dose to 20 mg daily. The patient's questions regarding medications were answered. The patient did attend groups he demonstrated no agitated behavior. He reported a progressive improvement of symptoms while here in the hospital. He was seen in medical consultation. The patient is reporting no acute suicidal ideation intent or plan. He expresses some mild anxiety regarding initiating care with a new clinic and we processed that further. He continues to express disappointment that he is not able to follow up with [facility] but for financial reasons he is not eligible. Mental status exam: The patient is an overweight male he demonstrates adequate hygiene improved grooming. He chronically has poor dentition. He reports his mood is improved he is reporting no acute suicidal ideation intent or plan. He is reporting no homicidal ideation intent or plan. There is no evidence of psychosis and he does not appear hypomanic or manic. Speech is fluent spontaneous verbose nonpressured. Thought process is mildly circumstantial but otherwise linear. There is no evidence of tangential thinking loose associations or flight of ideas. He demonstrates no verbal or physical aggressiveness. Affect demonstrates an appropriate range of expression. His cognitive abilities remain intact during the course of the hospitalization short-term memory appears to be intact as he is recalling events from the last 1-2 days. Impressions 1. Depression unspecified, major depressive disorder versus bipolar 2 disorder , marijuana use disorder, alcohol use disorder history 2. Cluster B traits 3. Obesity, diabetes, asthma, hypertension, chronic pain Plan: The patient will be discharged mental health unit to return home residing with his roommate. He will continue on Seroquel 200 mg at bedtime, Trileptal 300 mg twice daily, Celexa 20 mg daily. We will taper him off of Ativan in he will be given Vistaril 25 mg up to twice daily as needed for anxiety. He is instructed not to use any alcohol or illicit drugs including marijuana. There is no imminent safety risk is appropriate for transition back to outpatient care. Social work will arrange outpatient follow-up with mental health services. The patient is instructed to return to the hospital if any acute safety concerns. Patient Condition at Discharge: Stable Plan - Discharge Summary New Discharge Prescriptions: Citalopram Hydrobromide [CeleXA] 20 mg PO DAILY #30 tab LORazepam [Ativan] 0.5 mg PO BID #9 tab Nicotine 21Mg/24Hr Patch [Habitrol] 1 patch TRANSDERM DAILY #14 patch OXcarbazepine [Trileptal] 300 mg PO BID #60 tab QUEtiapine [SEROquel] 200 mg PO HS #30 tab hydrOXYzine PAMOATE [Vistaril] 25 mg PO BID PRN #30 cap PRN Reason: Anxiety Discharge Medication List Albuterol Sulfate [Ventolin HFA] 2 puff INHALATION QID PRN 04/30/16 [History] Budesonide-Formot 160-4.5 Mcg [Symbicort 160-4.5 Mcg Inhaler] 2 puff INHALATION RT-BID puff 05/09/16 [Rx] Citalopram Hydrobromide [CeleXA] 20 mg PO DAILY #30 tab 05/09/16 [Rx] HYDROcodone/APAP 5-325MG [[place] 5-325] 1 each PO Q12H PRN #0 tab 05/09/16 [Rx] LORazepam [Ativan] 0.5 mg PO BID #9 tab 05/09/16 [Rx] Lisinopril-Hctz 20-25 mg [Zestoretic 20-25] 1 each PO DAILY tab 05/09/16 [Rx] Nicotine 21Mg/24Hr Patch [Habitrol] 1 patch TRANSDERM DAILY #14 patch 05/09/16 [ Rx] OXcarbazepine [Trileptal] 300 mg PO BID #60 tab 05/09/16 [Rx] Pantoprazole [Protonix] 40 mg PO AC-BRKFST tablet. 05/09/16 [Rx] QUEtiapine [SEROquel] 200 mg PO HS #30 tab 05/09/16 [Rx] hydrOXYzine PAMOATE [Vistaril] 25 mg PO BID PRN #30 cap 05/09/16 [Rx] metFORMIN HCL [Glucophage] 500 mg PO W/BRKFST tab 05/09/16 [Rx] Follow up Appointment(s)/Referral(s): [facility] [Outside] - 05/12/16 1:00 pm (Yohannes ) None,Stated [Primary Care Provider] - 1-2 days
[2016-05-09] MEDS: ALBUTEROL INHALER 60 PUFF/8 GM INHALER INHALATION PRN (09:20)
[2016-05-09] MEDS: SYMBICORT 160-4.5 MCG INHALER INHALATION SCH (09:20)
[2016-05-09] MEDS ORDERED: QUEtiapine 200 MG TAB PO SCH (21:00)
== END 2016-05-09 11:24 | disposition home or self-care (01) | DRG 885 ==
LOC: EC 00:52 → 3MHU 03:39
PROVIDERS: ADMIT Psychiatry & Neurology Psychiatry; ATTEND Psychiatry & Neurology Psychiatry
DX: F31.81 Bipolar II disorder (principal); E11.9 Type 2 diabetes mellitus without complications; R45.851 Suicidal ideations; I10 Essential (primary) hypertension; E78.5 Hyperlipidemia, unspecified; F10.20 Alcohol dependence, uncomplicated; F12.10 Cannabis abuse, uncomplicated; F41.0 Panic disorder [episodic paroxysmal anxiety]; G89.29 Other chronic pain; M54.9 Dorsalgia, unspecified; J44.9 Chronic obstructive pulmonary disease, unspecified; J45.909 Unspecified asthma, uncomplicated; Z82.49 Family history of ischemic heart disease and other diseases of the circulatory system; Z72.0 Tobacco use; Z79.899 Other long term (current) drug therapy
CPT/HCPCS: 36415; 80053; 80183; 80300; 80301; 81003; 82075; 83036; 84443; 85025; 90686; 94640; 99285